=== PATIENT | female | born 1990 | race African-American/Black ===

== ENCOUNTER 2017-04-14 11:06 | Emergency (ER) | payer OTHER ==
[2017-04-14 11:10] VITALS: BP 119/72; PULSE 105; TEMP 98.1; BMI 24.5
[2017-04-14] MEDS ORDERED: DEXAMETHASONE LIQUID 0.5 MG/5 ML 240 ML BULK BOTTLE PO ONE (11:45)
[2017-04-14] MEDS ORDERED: ACETAMINOPHEN 325 MG TABLET (FP) PO ONE (11:45)
[2017-04-14] MEDS ORDERED: ACETAMINOPHEN 325 MG TABLET (FP) ONE (11:48)
[2017-04-14] MEDS ORDERED: DEXAMETHASONE SOD PHOSPHATE 10 MG/1 ML VIAL ONE (11:48)
--- NOTE | 2017-04-14 11:50 | PDOC ---
History of Present Illness - General Chief Complaint: Sore Throat Stated Complaint: SWOLLEN TONSILS, EAR ACHE Time Seen by Provider: 04/14/17 11:13 History Source: Patient Exam Limitations: No Limitations - History of Present Illness Initial Comments: 04/14/17 11:45 27 year old female presented to ED with worsening swelling to the back of her throat now with right ear pain. Patient also states low-grade temperature 100.5 yesterday. Patient symptoms started about 3 days ago denies recent travel or recent illness. Patient does state decreased solid intake secondary to discomfort. Patient denies difficulty breathing or cough. Timing/Duration: other Severity: moderate Associated Symptoms: reports: fever/chills Past History - Travel Traveled outside of the country in the last 30 days: No - Past Medical History Allergies/Adverse Reactions: Allergies Allergy/AdvReac Type Severity Reaction Status Date / Time No Known Drug Allergies Allergy Verified 04/14/17 11:10 Home Medications: Ambulatory Orders NK [No Known Home Medication] 04/14/17 Asthma: Yes Cancer: No Cardiac Disorders: No COPD: No Diabetes: No HTN: Yes Seizures: No Thyroid Disease: No - Surgical History Abdominal Surgery: Yes - Reproductive History (#): 3 Para: 1 Cervical CA: No Dysfunctional Uterine Bleeding: No Ectopic : No Endometrial CA: No Polycystic Ovaries: No Therapeutic (s) & number: Yes (1) Tubal Ligation: No - Immunization History Immunization Up to Date: Yes - Suicide/Smoking/Psychosocial Hx Smoking Status: No Smoking History: Never smoked Have you smoked in the past 12 months: No Number of Cigarettes Smoked Daily: 0 Cigars Per Day: 0 Information on smoking cessation initiated: No Hx Alcohol Use: No Drug/Substance Use Hx: No Substance Use Type: None Hx Substance Use Treatment: No Patient Lives Alone: No Lives with/in: parents Review of Systems - Review of Systems Able to Perform ROS?: Yes Constitutional: Yes: Chills, Fever HEENTM: Yes: Ear Pain, Throat Pain, Throat Swelling, Difficulty Swallowing Respiratory: Yes: Symptoms reported Cardiac (ROS): No: Symptoms Reported ABD/GI: No: Symptoms Reported Musculoskeletal: No: Symptoms Reported Integumentary: No: Symptoms Reported Neurological: No: Symptoms reported *Physical Exam - Vital Signs Last Vital Signs Temp Pulse Resp BP Pulse Ox 98.1 F 105 H 19 119/72 100 04/14/17 11:09 04/14/17 11:09 04/14/17 11:09 04/14/17 11:09 04/14/17 11:09 - Physical Exam General Appearance: Yes: Nourished, Appropriately Dressed. No: Apparent Distress HEENT: positive: TMs Normal, Tonsillar Exudate (3+ bilateral), Tonsillar Erythema Neck: positive: Lymphadenopathy (R), Lymphadenopathy (L) (upper cervical) Respiratory/Chest: positive: Lungs Clear, Normal Breath Sounds. negative: Respiratory Distress, Accessory Muscle Use Cardiovascular: positive: Regular Rhythm, Tachycardia. negative: JVD Gastrointestinal/Abdominal: positive: Soft. negative: Tenderness Integumentary: positive: Normal Color, Warm, Moist Neurologic: positive: Motor Strength 5/5 (ambulatory) Medical Decision Making - Medical Decision Making 04/14/17 11:53 Pt here with sore throat and right ear pain x 3 days. On exam pt tachycardic, with enlarged exudative tonsills. Rapid step sent , decadron ordered, and tylenol given. Discharge with amoxicillin *DC/Admit/Observation/Transfer Diagnosis at time of Disposition: Tonsillitis - Discharge Dispostion Disposition: HOME Condition at time of disposition: Good - Referrals Referrals: Cat Dill MD [Primary Care Provider] - - Patient Instructions Printed Discharge Instructions: DI for Pharyngitis/Tonsillopharyngitis -- Adult Additional Instructions: Please take amoxicillin until completed. Drink plenty of fluids. - Post Discharge Activity
== END 2017-04-14 12:03 | disposition home or self-care (01) ==
LOC: JERFT 11:06
DX: J03.90 Acute tonsillitis, unspecified (principal); I10 Essential (primary) hypertension
CPT/HCPCS: 87070; 87430; 99281-25